=== PATIENT | male | born 1965 | race Caucasian/White ===

== ENCOUNTER 2017-11-20 15:42 | Inpatient (IN) | payer OTHER ==
[~2017-11-20] VITALS: Ht 172.7 cm; Wt 143.0 kg
[~2017-11-20 15:42] MED LIST: CZR50 PO; ESCI10TA17 PO; HYDR25TA5 PO; KLN/5 PO; NTRGSL/4 UT; PROM25TA9 PO; TRAM-10 PO; ZCRT/40 PO
[2017-11-20] MEDS ORDERED: SODIUM CHLORIDE 0.9% 1000ML 1,000 ML IV STA (15:58)
[2017-11-20] MEDS ORDERED: IMIPENEM/CILASTATIN IV 500 MG in DEXTROSE 5% 100ML 100 ML IV STA (16:35)
--- NOTE | 2017-11-20 16:36 | DIAGNOSTIC IMAGING REPORT ---
CHEST ONE VIEW PORTABLE CLINICAL HISTORY: 52 years-old Male presenting with Sepsis. TECHNIQUE: Portable upright AP view of the chest was obtained. COMPARISON: 10/17/2013. FINDINGS: Cardiomediastinal silhouette normal. Mild pulmonary vascular prominence, similar prior exam. Lungs and pleural spaces clear. Osseous structures normal. IMPRESSION: 1. No acute cardiopulmonary disease. Electronically signed by: Dylon Shi M.D. 11/20/2017 4:34 PM Dictated Date/Time: 11/20/2017 4:33 PM
[2017-11-20 16:49] LABS: BASO % 0.2 %; BASO ABS # 0.03 K/uL (0-0.2); EOS % 1.7 %; EOS ABS # 0.27 K/uL (0-0.5); HEMOGLOBIN 12.5 g/dL (14.0-18.0); IG# 0.05 K/uL (0.00-0.02); LYMPH % 14.6 %; LYMPH ABS # 2.37 K/uL (1.2-3.4); MEAN CELL VOLUME 84.4 fL (80-100); MEAN CORPUSCULAR HEMOGLOBIN 27.8 pg (25-34); MEAN CORPUSCULAR HGB CONC 32.9 g/dl (32-36); MEAN PLATELET VOLUME 9.8 fL (7.4-10.4); MONO % 8.2 %; MONO ABS # 1.33 K/uL (0.11-0.59); NEUT ABS # 12.13 K/uL (1.4-6.5); PLATELET COUNT 239 K/uL (130-400); RED CELL DISTRIBUTION WIDTH SD 46.7 fL (36.4-46.3); WHITE BLOOD COUNT 16.18 K/uL (4.8-10.8)
[2017-11-20] MEDS ORDERED: PHEN-876 PO (16:57)
[2017-11-20] MEDS ORDERED: CIPR-255 PO (16:57)
[2017-11-20] MEDS ORDERED: LOSA50TA6 PO (16:57)
--- NOTE | 2017-11-20 16:58 | DIAGNOSTIC IMAGING REPORT ---
ABD/PELVIS WITHOUT FOR STONE CLINICAL HISTORY: 52 years-old Male presenting with right flank pain eval for stone. TECHNIQUE: Multidetector CT of the abdomen and pelvis was performed without the use of intravenous contrast. IV contrast: None. A dose lowering technique was used consistent with the principles of ALARA (as low as reasonably achievable). COMPARISON: None. CT DOSE (mGy.cm): The estimated cumulative dose is 1688.39 mGy.cm. FINDINGS: Special Machine Operator topogram: Unremarkable. Lung bases: Lungs and pleural spaces clear. Normal heart size. Coronary artery calcification. No pericardial or pleural effusion. Liver: Normal morphology. Density consistent with hepatic steatosis. Biliary: No intrahepatic or extrahepatic biliary ductal dilatation. Gallbladder decompressed. Pancreas: Normal noncontrast appearance. Spleen: Punctate calcifications in the parenchyma may suggest a history of chronic granulomatous infection. Adrenal glands: Normal noncontrast appearance. Kidneys and ureters: Well-defined hypodensity at the upper pole the right kidney, indeterminate but likely cyst. No hydronephrosis. No nephrolithiasis. Normal ureters. Bladder: Circumferential bladder wall thickening allowing for underdistention. There is also mild perivesicular fat stranding. Pelvic organs: The prostate is not enlarged though there is periprostatic fat infiltration. Bowel: Few diverticula in the descending colon. The appendix is normal. No bowel obstruction. Peritoneal cavity: No free fluid or intraperitoneal gas. Lymph nodes: Few prominent upper abdominal lymph nodes including a lymph node in the peripancreatic region measuring 10 mm in the short axis. These are nonspecific. Vasculature: Atherosclerosis of the normal caliber abdominal aorta. Abdominal wall: Small fat-containing umbilical hernia. Musculoskeletal: Degenerative changes of the spine. IMPRESSION: 1. Findings suggest prostatitis and cystitis. Correlate with urinalysis and rectal exam. 2. Hepatic steatosis. Electronically signed by: Dylon Shi M.D. 11/20/2017 4:57 PM Dictated Date/Time: 11/20/2017 4:49 PM
[2017-11-20 16:59] LABS: PTT PATIENT 31.2 SECONDS (21.0-31.0)
[2017-11-20 17:10] LABS: ALBUMIN 3.2 gm/dl (3.4-5.0); CALCIUM 8.6 mg/dl (8.5-10.1); CREATININE 0.8 mg/dl (0.60-1.40); POTASSIUM 3.2 mmol/L (3.5-5.1); TOTAL PROTEIN 7.4 gm/dl (6.4-8.2)
[2017-11-20] MEDS ORDERED: SODIUM CHLORIDE 0.45% 1000ML 1,000 ML IV SCH (17:28)
[2017-11-20] MEDS ORDERED: ACETAMINOPHEN 325 MG TAB PO PRN (17:30)
[2017-11-20] MEDS ORDERED: ONDANSETRON INJ 2 MG/ML 2 ML VIAL IV PRN (17:30)
[2017-11-20] MEDS ORDERED: POTASSIUM CHLORIDE 10 MEQ TABCR PO SCH (17:30)
[2017-11-20] MEDS ORDERED: MAGNESIUM HYDROXIDE SUSP 30 ML UDC PO PRN (17:30)
[2017-11-20] MEDS ORDERED: POLYETHYLENE (MIRALAX) 17 GM PACK PO PRN (17:30)
[2017-11-20] MEDS ORDERED: ALUMINUM/MAGNESIUM/SIMETH (MAALOX MAX) 30 ML UDC PO PRN (17:30)
--- NOTE | 2017-11-20 17:38 | EMERGENCY ROOM VISIT NOTE ---
History Report prepared by Jerardo: Esmer Cardenas Under the Supervision of: Dr. Aaron Vázquez M.D. First contact with patient: 15:50 Chief Complaint: REFERRED BY DOCTOR Stated Complaint: KIDNEY INFECTION History of Present Illness The patient is a 52 year old male who presents to the Emergency Room with complaints of a worsening kidney infection that started yesterday. The patient reports that he visited his PCP yesterday because he was experiencing urinary frequency, fevers, and right-sided pain in the kidney area, and he states that he was diagnosed with pyelonephritis. He states that his he was given 2 shots and oral Ciprofloxacin that did not relieve his symptoms. He notes that his PCP today referred him to the ED for admission. The patient states that he has been experiencing constant aching in the right side of his back and that he still has a fever. He notes that his temperature was 101 yesterday and 102 today. The patient denies any vomiting. He reports a history of hypertension, hyperlipidemia, and sleep apnea, but no history of kidney stones. Source of History: patient Onset: yesterday Position: back (right side) Symptom Intensity: moderate Quality: ache Timing: constant Associated Symptoms: + fevers (temperature was 101 yesterday and 102 today) , + back pain (constant aching in right side), + urinary symptoms, No vomiting Review of Systems See HPI for pertinent positives & negatives. A total of 10 systems reviewed and were otherwise negative. Past Medical & Surgical Medical Problems: (1) Hypertension Nos (2) Unspecified Sleep Apnea (3) UTI (urinary tract infection) Family History Heart disease Social History Smoking Status: Never Smoker Alcohol Use: none Drug Use: none Marital Status: Housing Status: lives with family Current/Historical Medications Scheduled Ciprofloxacin Hcl (Cipro), 500 MG PO Q12 Hydrochlorothiazide (Hydrochlorothiazide), 25 MG PO DAILY Losartan Potassium (Cozaar), 50 MG PO DAILY Nitroglycerin (Nitrostat), 0.4 MG UT PRN Phenazopyridine HCl (Pyridium), 200 MG PO TID Simvastatin (Zocor), 40 MG PO QPM Allergies Coded Allergies: Lisinopril (Verified Adverse Reaction, Intermediate, cough, 11/20/17) Physical Exam Vital Signs Date Time Temp Pulse Resp B/P (MAP) Pulse Ox O2 Delivery O2 Flow Rate FiO2 11/20/17 17:10 77 18 132/58 98 Room Air 11/20/17 16:14 98 Room Air 11/20/17 15:47 37.1 89 20 132/75 94 Room Air Physical Exam Constitutional: Vital signs reviewed. Eyes: Pupils are equal round reactive to light. Conjunctiva are noninjected. ENT: Pharynx is clear without erythema or exudate. Mucous membranes are moist. Neck supple without meningeal signs. Respiratory: Clear to auscultation bilaterally. Breath sounds are equal bilaterally. Cardiovascular: Regular rate and rhythm. No rubs or gallops. GI: Soft, nondistended and nontender. Bowel sounds are present. Musculoskeletal: No peripheral edema. No lower extremity tenderness. Right- sided CVA tenderness. Integumentary: No cyanosis. Neurological: The patient is awake and alert. No focal deficits. Psychiatric: Normal affect. Medical Decision & Procedures ER Provider Diagnostic Interpretation: Radiology results as stated below per my review and the radiologist's interpretation: CHEST ONE VIEW PORTABLE CLINICAL HISTORY: 52 years-old Male presenting with Sepsis. TECHNIQUE: Portable upright AP view of the chest was obtained. COMPARISON: 10/17/2013. FINDINGS: Cardiomediastinal silhouette normal. Mild pulmonary vascular prominence, similar prior exam. Lungs and pleural spaces clear. Osseous structures normal. IMPRESSION: 1. No acute cardiopulmonary disease. Electronically signed by: Dylon Shi M.D. 11/20/2017 4:34 PM Dictated Date/Time: 11/20/2017 4:33 PM ABD/PELVIS WITHOUT FOR STONE CLINICAL HISTORY: 52 years-old Male presenting with right flank pain eval for stone. TECHNIQUE: Multidetector CT of the abdomen and pelvis was performed without the use of intravenous contrast. IV contrast: None. A dose lowering technique was used consistent with the principles of ALARA (as low as reasonably achievable). COMPARISON: None. CT DOSE (mGy.cm): The estimated cumulative dose is 1688.39 mGy.cm. FINDINGS: Wood Mechanist topogram: Unremarkable. Lung bases: Lungs and pleural spaces clear. Normal heart size. Coronary artery calcification. No pericardial or pleural effusion. Liver: Normal morphology. Density consistent with hepatic steatosis. Biliary: No intrahepatic or extrahepatic biliary ductal dilatation. Gallbladder decompressed. Pancreas: Normal noncontrast appearance. Spleen: Punctate calcifications in the parenchyma may suggest a history of chronic granulomatous infection. Adrenal glands: Normal noncontrast appearance. Kidneys and ureters: Well-defined hypodensity at the upper pole the right kidney, indeterminate but likely cyst. No hydronephrosis. No nephrolithiasis. Normal ureters. Bladder: Circumferential bladder wall thickening allowing for underdistention. There is also mild perivesicular fat stranding. Pelvic organs: The prostate is not enlarged though there is periprostatic fat infiltration. Bowel: Few diverticula in the descending colon. The appendix is normal. No bowel obstruction. Peritoneal cavity: No free fluid or intraperitoneal gas. Lymph nodes: Few prominent upper abdominal lymph nodes including a lymph node in the peripancreatic region measuring 10 mm in the short axis. These are nonspecific. Vasculature: Atherosclerosis of the normal caliber abdominal aorta. Abdominal wall: Small fat-containing umbilical hernia. Musculoskeletal: Degenerative changes of the spine. IMPRESSION: 1. Findings suggest prostatitis and cystitis. Correlate with urinalysis and rectal exam. 2. Hepatic steatosis. Electronically signed by: Dylon Shi M.D. 11/20/2017 4:57 PM Dictated Date/Time: 11/20/2017 4:49 PM Laboratory Results 11/20/17 16:20 Red Blood Count 4.50, Mean Corpuscular Volume 84.4, Mean Corpuscular Hemoglobin 27.8, Mean Corpuscular Hemoglobin Concent 32.9, Mean Platelet Volume 9.8, Neutrophils (%) (Auto) 75.0, Lymphocytes (%) (Auto) 14.6, Monocytes (%) (Auto) 8.2, Eosinophils (%) (Auto) 1.7, Basophils (%) (Auto) 0.2, Neutrophils # (Auto) 12.13, Lymphocytes # (Auto) 2.37, Monocytes # (Auto) 1.33, Eosinophils # (Auto) 0.27, Basophils # (Auto) 0.03 11/20/17 16:20 Test 11/20/17 16:20 11/20/17 16:28 11/20/17 16:29 White Blood Count 16.18 K/uL (4.8-10.8) Red Blood Count 4.50 M/uL (4.7-6.1) Hemoglobin 12.5 g/dL (14.0-18.0) Hematocrit 38.0 % (42-52) Mean Corpuscular Volume 84.4 fL (80-100) Mean Corpuscular Hemoglobin 27.8 pg (25-34) Mean Corpuscular Hemoglobin Concent 32.9 g/dl (32-36) Platelet Count 239 K/uL (130-400) Mean Platelet Volume 9.8 fL (7.4-10.4) Neutrophils (%) (Auto) 75.0 % Lymphocytes (%) (Auto) 14.6 % Monocytes (%) (Auto) 8.2 % Eosinophils (%) (Auto) 1.7 % Basophils (%) (Auto) 0.2 % Neutrophils # (Auto) 12.13 K/uL (1.4-6.5) Lymphocytes # (Auto) 2.37 K/uL (1.2-3.4) Monocytes # (Auto) 1.33 K/uL (0.11-0.59) Eosinophils # (Auto) 0.27 K/uL (0-0.5) Basophils # (Auto) 0.03 K/uL (0-0.2) RDW Standard Deviation 46.7 fL (36.4-46.3) RDW Coefficient of Variation 15.0 % (11.5-14.5) Immature Granulocyte % (Auto) 0.3 % Immature Granulocyte # (Auto) 0.05 K/uL (0.00-0.02) Prothrombin Time 10.9 SECONDS (9.0-12.0) Prothromb Time International Ratio 1.0 (0.9-1.1) Activated Partial Thromboplast Time 31.2 SECONDS (21.0-31.0) Partial Thromboplastin Ratio 1.2 Anion Gap 8.0 mmol/L (3-11) Est Creatinine Clear Calc Drug Dose 147.9 ml/min Estimated GFR () 118.2 Estimated GFR (Non- 102.0 BUN/Creatinine Ratio 13.1 (10-20) Calcium Level 8.6 mg/dl (8.5-10.1) Total Bilirubin 0.6 mg/dl (0.2-1) Aspartate Amino Transf (AST/SGOT) 13 U/L (15-37) Alanine Aminotransferase (ALT/SGPT) 21 U/L (12-78) Alkaline Phosphatase 82 U/L (45-117) Total Protein 7.4 gm/dl (6.4-8.2) Albumin 3.2 gm/dl (3.4-5.0) Globulin 4.2 gm/dl (2.5-4.0) Albumin/Globulin Ratio 0.8 (0.9-2) Bedside Lactic Acid Venous 1.20 mmol/L (0.90-1.70) Urine Color ORANGE Urine Appearance CLEAR (CLEAR) Urine pH 6.5 (4.5-7.5) Urine Specific [place] 1.023 (1.000-1.030) Urine Protein TRACE (NEG) Urine Glucose (UA) NEG (NEG) Urine Ketones NEG (NEG) Urine Occult Blood TRACE (NEG) Urine Nitrite POS (NEG) Urine Bilirubin NEG (NEG) Urine Urobilinogen NEG (NEG) Urine Leukocyte Esterase SMALL (NEG) Urine WBC (Auto) 5-10 /hpf (0-5) Urine RBC (Auto) 5-10 /hpf (0-4) Urine Hyaline Casts (Auto) 1-5 /lpf (0-5) Urine Epithelial Cells (Auto) >30 /lpf (0-5) Urine Bacteria (Auto) NEG (NEG) Laboratory results as reviewed by me. Medications Administered Medications (Trade) Dose Ordered Sig/Rodrigo Route Start Time Stop Time Status Last Admin Dose Admin Sodium Chloride 1,000 ml @ 999 mls/hr Q1H1M STAT IV 11/20/17 15:58 11/20/17 16:58 DC 11/20/17 16:30 999 MLS/HR Imipenem/ Cilastatin Sodium 500 mg/Dextrose 110 ml @ 100 mls/hr NOW STAT IV 11/20/17 16:35 11/20/17 17:40 11/20/17 17:10 100 MLS/HR ED Course 1551: The patient was evaluated in room B6. A complete history and physical exam was performed. 1558: Sodium Chloride 1000 ml @ 999 mls/hr IV. 1633: I checked on the patient and noted that the patient's lactic acid is not elevated. The patient was able to urinate but his urine was orange. I will start him on antibiotics now. 1635: Administered Imipenem/Cilastatin Sodium 500 mg/Dextrose 110 ml @ 100 mls/ hr IV. 1703: I checked on the patient and discussed his test results with him. 1715: I spoke with Dr. Mateo MONTES of [facility]. We discussed the patient and his results. The patient will be further evaluated by Dr. Arellano. Medical Decision This is a 52-year-old male who presents with right-sided flank pain. Differential diagnosis includes pyelonephritis, UTI, kidney stone, hydronephrosis, strain. I did perform a limited focused review of portions of the patient's old chart on the electronic medical record. The patient has had no recent pertinent visits to this hospital. I did evaluate the patient as noted above. The patient is presenting with right -sided constant flank pain for the past several days with fever. He was diagnosed with a kidney infection and has not been responding to outpatient medications with worsening fever and continued pain. IV access was established. He declined any pain medication here. I did order and personally review the patient's urine analysis as described above. Urine culture was sent. Blood cultures were obtained. I did treat him with Primaxin IV. I did order and review the patient's blood work as noted in the electronic medical record. His white blood cell count is elevated but his lactic acid is negative. I did order a CT of the abdomen and pelvis. I did review the images myself as well as the radiology report as described above. This did not show any evidence of hydronephrosis or obstructing stone. He does have signs of prostatitis. I did discuss the test results with the patient. I did discuss the case with the hospitalist and casey saw operator. Medication Reconcilliation Current Medication List: was personally reviewed by me Blood Pressure Screening Patient's blood pressure: Elevated blood pressure (Will be monitored by hospitalist) Consults Time Called: [id number] Consulting Physician: Dr. Mateo MONTES, [facility] Returned Call: [phone] [facility] We discussed the patient and his results. The patient will be further evaluated by Dr. Arellano. Impression Primary Impression: Pyelonephritis Additional Impressions: Prostatitis Failure of outpatient treatment Hypokalemia Scribe Attestation The scribe's documentation has been prepared under my direct and personally reviewed by me in its entirety. I confirm that the note above accurately reflects all work, treatment, procedures, and medical decision making performed by me. Departure Information Dispostion Being Evaluated By Hospitalist Amanuel Longo M.D. (PCP) Patient Instructions My [facility] Problem Qualifiers Additional Impressions: Prostatitis Prostatitis type: acute Qualified Codes: N41.0 - Acute prostatitis
[2017-11-20] MEDS ORDERED: NITROGLYCERIN 0.4 MG SL PER TAB CHARGE UT PRN (17:45)
[2017-11-20] MEDS ORDERED: PIPERACILL/TAZOBAC CONSULT ACTIVE PRN (17:45)
[2017-11-20 19:03] VITALS: BP 138/84; PULSE 88; TEMP 37.4; O2SAT 94; Ht 172.7 cm; Wt 143.0 kg
[2017-11-20] MEDS ORDERED: NSS + 20MEQ KCL 1000ML 1,000 ML IV SCH (19:15)
[2017-11-20] MEDS ORDERED: PIPERACILL/TAZOBAC IV 4.5 GM in DEXTROSE 5% 100ML 100 ML IV ONE (19:15)
--- NOTE | 2017-11-20 19:46 | History and Physical ---
History & Physical Date & Time of Service: Nov 20, 2017 at 17:59 Chief Complaint: Kidney Infection Primary Care Physician: Amanuel Alexander M.D. History of Present Illness Source: patient, clinic records, hospital records Pt is 52 y/o M with PMH HTN, HLD, GERD, VIANCA referred to ER for possible pyelonephritis. Patient reports past several days has been having urinary frequency, dysuria, nausea and overall fatigue and not feeling well. Having fever 102F and chills past 2 days. Also with right-sided back pain and some diffuse abdominal discomfort. Was seen in clinic yesterday and was given Rocephin 1 g, Rx for Cipro 500 twice daily 10 days, Pyridium as needed. urine culture: E. coli, sensitivities pending. Patient rechecked in clinic today with no improvement and referred to ER. Sexual partner-. Denies STI risk. Denies history of known prostate issues in the past. Denies any history of kidney stones. Denies any scrotal or penile pain, scrotal edema or discoloration, penile discharge, or rectal pain. Denies V/D/C, HARRIS, dizziness, syncope, vision changes, neck pain, CP, SOB, orthopnea, palpitations, cough, sore throat, choking, otalgia, rhinorrhea, extremity edema, rashes, hematuria, weight changes. Past Medical/Surgical History Medical Problems: (1) Chest pain Status: Resolved (2) GERD (gastroesophageal reflux disease) Status: Chronic (3) Headache Status: Resolved (4) HLD (hyperlipidemia) Status: Chronic (5) Hypertension Nos Status: Chronic (6) Unspecified Sleep Apnea Status: Chronic Surgical Problems: (1) H/O arthroscopy of right knee Status: Resolved (2) H/O repair of right rotator cuff Status: Resolved Family History Diabetes mellitus Heart disease Social History Smoking Status: Never Smoker Smokeless Tobacco Use: No Alcohol Use: 1 drink a month Drug Use: none Marital Status: Housing status: lives with significant other Occupational Status: employed Immunizations History of Influenza Vaccine: N/A History of Tetanus Vaccine?: Unknown History of Pneumococcal: Unknown History of Hepatitis B Vaccine: Unknown Allergies Coded Allergies: Lisinopril (Verified Adverse Reaction, Intermediate, cough, 11/20/17) Home Medications Scheduled Ciprofloxacin Hcl (Cipro), 500 MG PO Q12 Hydrochlorothiazide (Hydrochlorothiazide), 25 MG PO DAILY Losartan Potassium (Cozaar), 50 MG PO BID Nitroglycerin (Nitrostat), 0.4 MG UT PRN Phenazopyridine HCl (Pyridium), 200 MG PO TID Simvastatin (Zocor), 40 MG PO QPM Review of Systems See HPI for pertinent positives & negatives. All other systems reviewed and were otherwise negative Physical Exam Vital Signs Date Time Temp Pulse Resp B/P (MAP) Pulse Ox O2 Delivery O2 Flow Rate FiO2 11/20/17 17:10 77 18 132/58 98 Room Air 11/20/17 16:14 98 Room Air 11/20/17 15:47 37.1 89 20 132/75 94 Room Air General Appearance: no apparent distress, + obese, + pertinent finding (Ill- appearing) Head: normocephalic, atraumatic Eyes: normal inspection, sclerae normal ENT: hearing grossly normal, pharynx normal, + pertinent finding (Mucous membranes moist) Neck: supple, trachea midline Respiratory/Chest: lungs clear, normal breath sounds, no respiratory distress Cardiovascular: regular rate, rhythm, no murmur Abdomen/GI: normal bowel sounds, soft, + pertinent finding (Diffuse mild tenderness to palpation, no rebound no guarding) Back: + right CVA tenderness Extremities/Musculoskelatal: no calf tenderness, normal capillary refill, no pedal edema Neurologic/Psych: alert, normal mood/affect, oriented x 3 Skin: warm/dry Diagnostics Laboratory Results Results Past 24 Hours Test 11/20/17 16:20 11/20/17 16:28 11/20/17 16:29 Range/Units White Blood Count 16.18 4.8-10.8 K/uL Red Blood Count 4.50 4.7-6.1 M/uL Hemoglobin 12.5 14.0-18.0 g/dL Hematocrit 38.0 42-52 % Mean Corpuscular Volume 84.4 80-100 fL Mean Corpuscular Hemoglobin 27.8 25-34 pg Mean Corpuscular Hemoglobin Concent 32.9 32-36 g/dl Platelet Count 239 130-400 K/uL Mean Platelet Volume 9.8 7.4-10.4 fL Neutrophils (%) (Auto) 75.0 % Lymphocytes (%) (Auto) 14.6 % Monocytes (%) (Auto) 8.2 % Eosinophils (%) (Auto) 1.7 % Basophils (%) (Auto) 0.2 % Neutrophils # (Auto) 12.13 1.4-6.5 K/uL Lymphocytes # (Auto) 2.37 1.2-3.4 K/uL Monocytes # (Auto) 1.33 0.11-0.59 K/uL Eosinophils # (Auto) 0.27 0-0.5 K/uL Basophils # (Auto) 0.03 0-0.2 K/uL RDW Standard Deviation 46.7 36.4-46.3 fL RDW Coefficient of Variation 15.0 11.5-14.5 % Immature Granulocyte % (Auto) 0.3 % Immature Granulocyte # (Auto) 0.05 0.00-0.02 K/uL Prothrombin Time 10.9 9.0-12.0 SECONDS Prothromb Time International Ratio 1.0 0.9-1.1 Activated Partial Thromboplast Time 31.2 21.0-31.0 SECONDS Partial Thromboplastin Ratio 1.2 Sodium Level 139 136-145 mmol/L Potassium Level 3.2 3.5-5.1 mmol/L Chloride Level 103 98-107 mmol/L Carbon Dioxide Level 28 21-32 mmol/L Anion Gap 8.0 3-11 mmol/L Blood Urea Nitrogen 11 7-18 mg/dl Creatinine 0.80 0.60-1.40 mg/dl Est Creatinine Clear Calc Drug Dose 147.9 ml/min Estimated GFR () 118.2 Estimated GFR (Non- 102.0 BUN/Creatinine Ratio 13.1 10-20 Random Glucose 108 70-99 mg/dl Calcium Level 8.6 8.5-10.1 mg/dl Magnesium Level 2.0 1.8-2.4 mg/dl Total Bilirubin 0.6 0.2-1 mg/dl Aspartate Amino Transf (AST/SGOT) 13 15-37 U/L Alanine Aminotransferase (ALT/SGPT) 21 12-78 U/L Alkaline Phosphatase 82 45-117 U/L Total Protein 7.4 6.4-8.2 gm/dl Albumin 3.2 3.4-5.0 gm/dl Globulin 4.2 2.5-4.0 gm/dl Albumin/Globulin Ratio 0.8 0.9-2 Bedside Lactic Acid Venous 1.20 0.90-1.70 mmol/L Urine Color ORANGE Urine Appearance CLEAR CLEAR Urine pH 6.5 4.5-7.5 Urine Specific [place] 1.023 1.000-1.030 Urine Protein TRACE NEG Urine Glucose (UA) NEG NEG Urine Ketones NEG NEG Urine Occult Blood TRACE NEG Urine Nitrite POS NEG Urine Bilirubin NEG NEG Urine Urobilinogen NEG NEG Urine Leukocyte Esterase SMALL NEG Urine WBC (Auto) 5-10 0-5 /hpf Urine RBC (Auto) 5-10 0-4 /hpf Urine Hyaline Casts (Auto) 1-5 0-5 /lpf Urine Epithelial Cells (Auto) >30 0-5 /lpf Urine Bacteria (Auto) NEG NEG Microbiology Results 11/20/17 Blood Culture, Received Pending 11/20/17 Blood Culture, Received Pending 11/20/17 Urine Culture, Received Pending Diagnostic Radiology CXR: IMPRESSION: 1. No acute cardiopulmonary disease. CT ABDOMEN PELVIS: IMPRESSION: 1. Findings suggest prostatitis and cystitis. Correlate with urinalysis and rectal exam. 2. Hepatic steatosis. Impression Assessment and Plan Pt is 52 y/o M with PMH HTN, HLD, GERD, VIANCA referred to ER from PCP for possible pyelonephritis. Patient reports past several days has been having urinary frequency, dysuria, nausea, fatigue and not feeling well. Having fever 102F and chills past 2 days, and right-sided back pain and some diffuse abdominal discomfort. UTI PROSTATITIS Failed out patient treatment Outpatient urine culture 11/19/17: e coli, no sensitivities yet. Was treated with Rocephin and took 3 doses Cipro 500mg po without improvement. In ER pt afebrile, P: 89, R: 20, BP: 132/75, 94-98% on RA. WBC:16. POC lactic acid: WNL.UA: trace blood, +nitrite, sm leuk, 5-10 WBC & RBC, >30epi, neg bacteria. CT ABD/PELVIS: Findings suggest prostatitis and cystitis. Pt was given 1L NSS, primaxin IV -pending urine culture -pending blood cultures -IVF -zosyn -cbc in am -if no improvement consider urology consult HYPOKALEMIA K: 3.2 -replace and monitor HTN -hold HCTZ for now -continue losartan HLD -continue statin VIANCA -CPAP HS DVT Prophylaxis -Lovenox Admit MedSurg Full code Follows with Dr Alexander for routine care Pt was seen with Dr Tam. See addendum ATTENDING ADDENDUM : Patient seen and examined: Care coordinated with Yaneli Galindo PA-C Labs and images reviewed This is a 52-year-old male with past medical history of hypertension hyperlipidemia, admitted with pyelonephritis/UTI Failed outpatient treatment No evidence of sepsis Outpatient it wound culture on 11/19/2017 E. coli, sensitivity pending Patient was treated including with Rocephin IM, ciprofloxacin Patient will be started empirically with IV Zosyn Urine culture ordered ID evaluation requested Hypokalemia Replaced Hold HCTZ PRP These refer to further documentation by Yaneli prajapati PA-C for discussion of other chronic issues Brittany Tam MD Resuscitation Status VTE Prophylaxis Will order VTE Prophylaxis: Yes Additional Copies To Amanuel Alexander M.D.
[2017-11-20] MEDS: ENOXAPARIN 40 MG/0.4 ML SYR SC SCH (19:54)
[2017-11-20] MEDS: SIMVASTATIN 40 MG TAB PO SCH (19:55)
[2017-11-20] MEDS: PHENAZOPYRIDINE HCL 200 MG TAB PO PRN (19:55)
[2017-11-20] MEDS: LOSARTAN POTASSIUM 50 MG TAB PO SCH (20:02)
[2017-11-20 23:27] VITALS: BP 121/75; PULSE 75; TEMP 36.4; O2SAT 94
[2017-11-21] MEDS: PIPERACILL/TAZOBAC IV 4.5 GM in DEXTROSE 5% 100ML 100 ML IV SCH ×3 (00:06→15:45)
[2017-11-21 04:24] VITALS: BP 128/71; PULSE 67; TEMP 36.7; O2SAT 95
[2017-11-21 06:33] LABS: HEMATOCRIT 36.5 % (42-52); HEMOGLOBIN 11.5 g/dL (14.0-18.0); MEAN CELL VOLUME 85.9 fL (80-100); MEAN CORPUSCULAR HEMOGLOBIN 27.1 pg (25-34); MEAN CORPUSCULAR HGB CONC 31.5 g/dl (32-36); MEAN PLATELET VOLUME 10.1 fL (7.4-10.4); PLATELET COUNT 221 K/uL (130-400); RED CELL DISTRIBUTION WIDTH CV 15.2 % (11.5-14.5); WHITE BLOOD COUNT 11.96 K/uL (4.8-10.8)
[2017-11-21 07:02] LABS: CREATININE 0.85 mg/dl (0.60-1.40); POTASSIUM 3.8 mmol/L (3.5-5.1)
[2017-11-21 07:18] VITALS: BP 128/80; PULSE 60; TEMP 36.8; O2SAT 95
[2017-11-21] MEDS: LOSARTAN POTASSIUM 50 MG TAB PO SCH ×2 (07:40→20:29)
[2017-11-21] MEDS: PHENAZOPYRIDINE HCL 200 MG TAB PO PRN ×2 (07:40→15:47)
--- NOTE | 2017-11-21 07:48 | Progress Note ---
Progress Note Date of Service Nov 21, 2017. Progress Note ID Consult Dictated #[id number] A/P: 1. UTI - E. coli -Continue IV abx, follow final sensitivities -Thank you
--- NOTE | 2017-11-21 08:28 | INFECT. DISEASE CONSULTATION ---
DATE OF CONSULTATION: 11/21/2017 HISTORY OF PRESENT ILLNESS: This is a 52-year-old gentleman who was admitted for questionable pyelonephritis. He recently has been having increasing urinary burning, frequency, and dysuria. He was having subjective fevers at home as well. He also complained of right-sided back pain in the Emergency Room. He was seen 1 day prior to admission and was given a dose of Rocephin and then put on a course of ciprofloxacin for 10 days. Reportedly, his urine culture on the from an outpatient facility grew E. coli with sensitivities pending. He did not feel any better and he came to the hospital. He did have a CAT scan of the abdomen and pelvis, which showed cystitis and questionable prostatitis. He was placed on Zosyn and he is tolerating this well. He did have a leukocytosis of 16.1. His UA had only 5-10 WBCs and no bacteria; however, he has received Rocephin and Cipro prior to this. This morning, he comfort. He is still having some urinary complaints, but overall these have improved. He denies any fevers or chills. He denies any abdominal pain, nausea, vomiting, or diarrhea. He is tolerating antibiotics well. His remaining review of systems is unremarkable. PAST MEDICAL HISTORY: Significant for GERD, hyperlipidemia, hypertension, sleep apnea. PAST SURGICAL HISTORY: Significant for right rotator cuff repair and a knee surgery. FAMILY HISTORY: Noncontributory. SOCIAL HISTORY: Negative for tobacco use, alcohol use, or drug use. ALLERGIES: HE HAS ALLERGIES TO LISINOPRIL. CURRENT MEDICATIONS: Zosyn, Lovenox, Zocor, Cozaar, Nitrostat, Pyridium, Tylenol, Maalox, milk of magnesia, Zofran, MiraLax. PHYSICAL EXAMINATION: VITAL SIGNS: He is afebrile, pulse 60, respiratory rate 18, blood pressure 128/80, oxygen saturation is 95% on room air. GENERAL: He is awake, alert, and oriented x3. He is in no acute distress. HEENT: Mucous membranes are moist. Extraocular muscles are intact. HEART: Regular. LUNGS: Clear. ABDOMEN: Soft, nontender, nondistended. EXTREMITIES: There is no lower extremity edema. SKIN: Without rash. LABORATORY STUDIES: CBC today, white blood cell count 11.9 down from 16.1, hemoglobin 11.5, platelets 221. Chemistry panel: Sodium 142, potassium 3.8, chloride 106, bicarbonate 30, BUN 10, creatinine 0.8, glucose 108. LFTs are within normal limits. UA is negative. Urine and blood cultures are pending. CT of the abdomen and pelvis again shows cystitis with questionable prostatitis. ASSESSMENT AND PLAN: Urinary tract infection. He will continue on IV antibiotics pending additional culture data. Thank you for this consultation.
[2017-11-21] MEDS ORDERED: LOSARTAN POTASSIUM 50 MG TAB PO SCH (09:00)
[2017-11-21 11:15] VITALS: BP 127/80; PULSE 55; TEMP 36.6; O2SAT 96
[2017-11-21 19:17] VITALS: BP 148/83; PULSE 70; TEMP 36.7; O2SAT 97
--- NOTE | 2017-11-21 19:21 | Progress Note ---
Internal Med Progress Note Date of Service: Nov 21, 2017. Provider Documentation: SUBJECTIVE: Feels much better today no fever or chills Denies of any urinary symptoms OBJECTIVE: Vital Signs-as noted below Exam: General-no sign of distress, Eyes-clear nonicteric, pupils bilateral equal reactive light extraocular muscles and ENT-moist oral mucosa Neck-no JVD, no carotid bruit, trachea midline Lungs-clear to auscultate, no wheeze or Heart-regular S1 and S2 no murmur Abdomen-soft nontender no organomegaly, no CVA 10 Extremities-no rash or deformity Neuro-awake oriented 3, no focal neurological deficit Lab data as noted below. ASSESSMENT & PLAN: UTI PROSTATITIS Failed out patient treatment Outpatient urine culture 11/19/17: e coli, /hart sensitive repeat urine culture in ED -no growth ( pt already treated with Abx ) on IV Zosyn appreciate input form ID will transition to Oral Abx in AM HYPOKALEMIA corrected HTN BP stable -continue losartan HLD -continue statin VIANCA -CPAP HS DVT Prophylaxis -Lovenox CODE STATUS: Full code DISPOSITION stable to transfer to Medical floor ' possible dc home tomorrow with oral antibiotics Vital Signs: Date Time Temp Pulse Resp B/P (MAP) Pulse Ox O2 Delivery O2 Flow Rate FiO2 11/21/17 19:17 36.7 70 18 148/83 (104) 97 Room Air 11/21/17 11:15 36.6 55 22 127/80 (96) 96 Room Air 11/21/17 08:00 Room Air 11/21/17 07:18 36.8 60 18 128/80 (96) 95 Room Air 11/21/17 04:24 36.7 67 18 128/71 (90) 95 Room Air 11/20/17 23:27 36.4 75 18 121/75 (90) 94 CPAP Lab Results: Results Past 24 Hours Test 11/21/17 05:28 Range/Units White Blood Count 11.96 4.8-10.8 K/uL Red Blood Count 4.25 4.7-6.1 M/uL Hemoglobin 11.5 14.0-18.0 g/dL Hematocrit 36.5 42-52 % Mean Corpuscular Volume 85.9 80-100 fL Mean Corpuscular Hemoglobin 27.1 25-34 pg Mean Corpuscular Hemoglobin Concent 31.5 32-36 g/dl RDW Standard Deviation 48.0 36.4-46.3 fL RDW Coefficient of Variation 15.2 11.5-14.5 % Platelet Count 221 130-400 K/uL Mean Platelet Volume 10.1 7.4-10.4 fL Sodium Level 142 136-145 mmol/L Potassium Level 3.8 3.5-5.1 mmol/L Chloride Level 106 98-107 mmol/L Carbon Dioxide Level 30 21-32 mmol/L Anion Gap 6.0 3-11 mmol/L Blood Urea Nitrogen 10 7-18 mg/dl Creatinine 0.85 0.60-1.40 mg/dl Est Creatinine Clear Calc Drug Dose 139.6 ml/min Estimated GFR () 115.3 Estimated GFR (Non- 99.5 BUN/Creatinine Ratio 12.0 10-20 Random Glucose 108 70-99 mg/dl Calcium Level 8.0 8.5-10.1 mg/dl
[2017-11-21] MEDS: SIMVASTATIN 40 MG TAB PO SCH (20:29)
[2017-11-21] MEDS: ENOXAPARIN 40 MG/0.4 ML SYR SC SCH (20:30)
[2017-11-21 21:21] VITALS: BP 147/88; PULSE 72; TEMP 36.8; O2SAT 92
[2017-11-21 22:58] VITALS: BP 119/76; PULSE 70; TEMP 37; O2SAT 96
[2017-11-22] MEDS: PIPERACILL/TAZOBAC IV 4.5 GM in DEXTROSE 5% 100ML 100 ML IV SCH ×2 (00:08→08:04)
[2017-11-22] MEDS: PHENAZOPYRIDINE HCL 200 MG TAB PO PRN (00:08)
[2017-11-22 06:20] LABS: HEMATOCRIT 37.1 % (42-52); HEMOGLOBIN 11.8 g/dL (14.0-18.0); MEAN CELL VOLUME 86.1 fL (80-100); MEAN CORPUSCULAR HEMOGLOBIN 27.4 pg (25-34); MEAN CORPUSCULAR HGB CONC 31.8 g/dl (32-36); PLATELET COUNT 229 K/uL (130-400); RED CELL DISTRIBUTION WIDTH CV 14.9 % (11.5-14.5); RED CELL DISTRIBUTION WIDTH SD 47.5 fL (36.4-46.3); WHITE BLOOD COUNT 9.45 K/uL (4.8-10.8)
[2017-11-22 07:02] VITALS: BP 119/70; PULSE 63; TEMP 36.8; O2SAT 95
[2017-11-22] MEDS: LOSARTAN POTASSIUM 50 MG TAB PO SCH (08:04)
--- NOTE | 2017-11-22 10:54 | Progress Note ---
Subjective Date of Service: Nov 22, 2017. Subjective pt outpt culture with pansensitive E. coli. blood and urine cultures are negative since admission. remains on IV abx. tolerating well. afebrile. wbc improved. Problem List Medical Problems: (1) Failure of outpatient treatment Status: Acute (2) Hypokalemia Status: Acute (3) Prostatitis Status: Acute (4) Pyelonephritis Status: Acute Objective Vital Signs Date Time Temp Pulse Resp B/P (MAP) Pulse Ox O2 Delivery O2 Flow Rate FiO2 11/22/17 07:02 36.8 63 18 119/70 (86) 95 Room Air 11/21/17 22:58 37.0 70 18 119/76 (90) 96 Room Air 11/21/17 21:30 Room Air 11/21/17 21:21 36.8 72 18 147/88 (107) 92 Room Air 11/21/17 20:00 Room Air 11/21/17 19:17 36.7 70 18 148/83 (104) 97 Room Air 11/21/17 11:15 36.6 55 22 127/80 (96) 96 Room Air Laboratory Results Item Value Date Time Blood Culture - Preliminary Resulted 11/20/17 1620 Blood NO GROWTH TO DATE. Urine Culture - Preliminary Resulted 11/20/17 1629 Urine , Clean Catch NO GROWTH - LESS THAN 1,000 COLONIES/... Blood Culture - Preliminary Resulted 11/20/17 1634 Blood NO GROWTH TO DATE. Last 24 Hours Test 11/22/17 05:47 White Blood Count 9.45 K/uL Red Blood Count 4.31 M/uL Hemoglobin 11.8 g/dL Hematocrit 37.1 % Mean Corpuscular Volume 86.1 fL Mean Corpuscular Hemoglobin 27.4 pg Mean Corpuscular Hemoglobin Concent 31.8 g/dl RDW Standard Deviation 47.5 fL RDW Coefficient of Variation 14.9 % Platelet Count 229 K/uL Mean Platelet Volume 10.0 fL Assessment and Plan (1) Prostatitis Assessment & Plan: can change to po keflex x 14 days upon d/c. ok for d/c when otherwise stable Problem Qualifiers (1) Prostatitis: Prostatitis type: acute Qualified Codes: N41.0 - Acute prostatitis
[2017-11-22] MEDS ORDERED: KFL500 PO (11:57)
--- NOTE | 2017-11-22 11:58 | Discharge Instructions ---
Discharge Instructions Date of Service Nov 22, 2017. Admission Reason for Admission: UTI Discharge Discharge Diagnosis / Problem: UTI -E.COLI /PROSTATIS Discharge Goals Goal(s): Decrease discomfort, Improve function, Increase independence, Improve disease control, Diagnostic testing Activity Recommendations Activity Limitations: resume your previous activity . Instructions / Follow-Up Instructions / Follow-Up HOSPITAL FOLLOW UP : 11/29/2017 @ 11:[address] Amanuel Alexander MD [facility] Current Hospital Diet Patient's current hospital diet: AHA Diet (Heart Healthy) Discharge Diet Recommended Diet: AHA Diet (Heart Healthy) Pending Studies Studies pending at discharge: no Medical Emergencies . Who to Call and When: Medical Emergencies: If at any time you feel your situation is an emergency, please call 911 immediately. . Non-Emergent Contact Non-Emergency issues call your: Primary Care Provider . . "Provider Documentation" section prepared by Brittany Tam. .
[2017-11-22] MEDS ORDERED: CEPHALEXIN MONOHYDRATE 500 MG CAP PO SCH (12:00)
[2017-11-22 15:30] VITALS: BP 119/70; PULSE 63; TEMP 36.8; O2SAT 95
--- NOTE | 2017-11-22 15:30 | Discharge Summary ---
Discharge Summary Date of Service Nov 22, 2017. Discharge Summary Admission Date: Nov 20, 2017 at 17:28 Discharge Date: Nov 22, 2017 Discharge Disposition: Home Principal Diagnosis: UTI -E.COLI /PROSTATITIS Procedures: CT ABDOMEN PELVISWITHOUT CONTRAST 1. Findings suggestive of prostatitis and cystitis. Correlate with urinalysis and rectal exam. 2. Hepatic steatosis Consultations: ID DR. CLARK Medication Reconciliation New Medications: Cephalexin Monohydrate (Cephalexin) 500 Mg Cap 500 MG PO QID for 12 Days, #48 CAP Continued Medications: Hydrochlorothiazide (Hydrochlorothiazide) 25 Mg Tab 25 MG PO DAILY, #90 Losartan Potassium (Cozaar) 50 Mg Tab 50 MG PO BID, TAB Nitroglycerin (Nitrostat) 0.4 Mg Tab 0.4 MG UT PRN, BTL Phenazopyridine HCl (Pyridium) 200 Mg Tab 200 MG PO TID for Bladder Pain, #6 TAB Simvastatin (Zocor) 40 Mg Tab 40 MG PO QPM, TAB Discontinued Medications: Ciprofloxacin Hcl (Cipro) 500 Mg Tab 500 MG PO Q12, #20 TAB Admission Information HPI (per Admitting provider): Pt is 52 y/o M with PMH HTN, HLD, GERD, VIANCA referred to ER for possible pyelonephritis. Patient reports past several days has been having urinary frequency, dysuria, nausea and overall fatigue and not feeling well. Having fever 102F and chills past 2 days. Also with right-sided back pain and some diffuse abdominal discomfort. Was seen in clinic yesterday and was given Rocephin 1 g, Rx for Cipro 500 twice daily 10 days, Pyridium as needed. urine culture: E. coli, sensitivities pending. Patient rechecked in clinic today with no improvement and referred to ER. Sexual partner-. Denies STI risk. Denies history of known prostate issues in the past. Denies any history of kidney stones. Denies any scrotal or penile pain, scrotal edema or discoloration, penile discharge, or rectal pain. Denies V/D/C, HARRIS, dizziness, syncope, vision changes, neck pain, CP, SOB, orthopnea, palpitations, cough, sore throat, choking, otalgia, rhinorrhea, extremity edema, rashes, hematuria, weight changes. Physical Exam (per Admitting): General Appearance: no apparent distress, + obese, + pertinent finding (Ill- appearing) Head: normocephalic, atraumatic Eyes: normal inspection, sclerae normal ENT: hearing grossly normal, pharynx normal, + pertinent finding (Mucous membranes moist) Neck: supple, trachea midline Respiratory/Chest: lungs clear, normal breath sounds, no respiratory distress Cardiovascular: regular rate, rhythm, no murmur Abdomen/GI: normal bowel sounds, soft, + pertinent finding (Diffuse mild tenderness to palpation, no rebound no guarding) Back: + right CVA tenderness Extremities/Musculoskelatal: no calf tenderness, normal capillary refill, no pedal edema Neurologic/Psych: alert, normal mood/affect, oriented x 3 Skin: warm/dry Hospital Course No fever chills, No abdominal or flank pain No complaint of dysuria/frequency, no urinary symptoms Appetite and energy improved No nausea Stable to be discharged home today PHYSICAL EXAM : General-no sign of distress, Eyes-clear nonicteric, pupils bilateral equal reactive light extraocular muscles and ENT-moist oral mucosa Neck-no JVD, no carotid bruit, trachea midline Lungs-clear to auscultate, no wheeze or Heart-regular S1 and S2 no murmur Abdomen-soft nontender no organomegaly, no CVA 10 Extremities-no rash or deformity Neuro-awake oriented 3, no focal neurological deficit Date Time Temp Pulse Resp B/P (MAP) Pulse Ox O2 Delivery O2 Flow Rate FiO2 11/22/17 15:30 36.8 63 18 95 Room Air 11/22/17 14:16 Room Air UTI PROSTATITIS Failed out patient treatment Outpatient urine culture 11/19/17: e coli, /hart sensitive repeat urine culture in ED -no growth ( pt already treated with Abx ) treated with IV Zosyn appreciate input form ID transitioned to Oral Keflex for total 2 weeks treatment HYPOKALEMIA corrected HTN BP stable -continue losartan HLD -continue statin VIANCA -CPAP HS DVT Prophylaxis -Lovenox CODE STATUS: Full code DISPOSITION Stable to be discharged home today Total time spent on discharge = 40 mins This includes examination of the patient, discharge planning, medication reconciliation, and communication with other providers. Discharge Instructions Discharge Instructions Date of Service Nov 22, 2017. Admission Reason for Admission: UTI Discharge Discharge Diagnosis / Problem: UTI -E.COLI /PROSTATITIS Discharge Goals Goal(s): Decrease discomfort, Improve function, Increase independence, Improve disease control, Diagnostic testing Activity Recommendations Activity Limitations: resume your previous activity . Instructions / Follow-Up Instructions / Follow-Up HOSPITAL FOLLOW UP : 11/29/2017 @ 11:[address] Amanuel Alexander MD [facility] Diet Patient's current hospital diet: AHA Diet (Heart Healthy) Discharge Diet Recommended Diet: AHA Diet (Heart Healthy) Pending Studies Studies pending at discharge: no Medical Emergencies . Who to Call and When: Medical Emergencies: If at any time you feel your situation is an emergency, please call 911 immediately. . Non-Emergent Contact Non-Emergency issues call your: Primary Care Provider . . "Provider Documentation" section prepared by Brittany Tam. . Additional Copies To Amanuel Alexander M.D.
== END 2017-11-22 16:02 | disposition home or self-care (01) | DRG 690 ==
LOC: C.EDB 15:44 → C.2T 17:28 → ENRESERV 18:08 → C.4E 11-21 21:09
PROVIDERS: ADMIT Hospitalist; ATTEND Hospitalist
DX: N39.0 Urinary tract infection, site not specified (principal); N41.0 Acute prostatitis; B96.20 Unspecified Escherichia coli [E. coli] as the cause of diseases classified elsewhere; I10 Essential (primary) hypertension; G47.33 Obstructive sleep apnea (adult) (pediatric); K21.9 Gastro-esophageal reflux disease without esophagitis; E78.5 Hyperlipidemia, unspecified; E87.6 Hypokalemia; Z79.899 Other long term (current) drug therapy